=== PATIENT | male | born 1970 | race Caucasian/White ===

== ENCOUNTER 2021-04-20 07:21 | Emergency (ER) | payer OTHER ==
[2021-04-20 08:00] LABS: HEMOGLOBIN 16.7 gm/dl (14.0-17.5); RED BLOOD COUNT 5.4 M/UL (4.20-5.50); WHITE BLOOD COUNT 9.4 K/UL (4.5-11.0)
[2021-04-20 08:26] LABS: BUN/CREATININE RATIO 12 (0-10)
[2021-04-20] MEDS ORDERED: PREDNISONE20 MG PO (10:02)
== END 2021-04-20 10:17 | disposition home or self-care (01) ==
LOC: ER1 07:21
PROVIDERS: Family Medicine
DX: J44.1 Chronic obstructive pulmonary disease with (acute) exacerbation (principal); F41.9 Anxiety disorder, unspecified; Z99.81 Dependence on supplemental oxygen; Z87.891 Personal history of nicotine dependence; Z20.822 Contact with and (suspected) exposure to COVID-19
CPT/HCPCS: 36600; 71045; 80053; 82550; 82553; 82803; 83605; 83690; 83735; 83874; 83880; 84484; 85025; 93005; 94640; 94664; 96374; 99285; J2930; U0002

== ENCOUNTER 2021-11-11 13:58 | Emergency (ER) | payer OTHER ==
[~2021-11-11 13:58] MED LIST: PREDNISONE20 MG PO
[2021-11-11 14:50] LABS: HEMOGLOBIN 14.4 gm/dl (14.0-17.5); RED BLOOD COUNT 4.77 M/UL (4.20-5.50); WHITE BLOOD COUNT 9.3 K/UL (4.5-11.0)
[2021-11-11 15:18] LABS: BUN/CREATININE RATIO 13 (0-10)
[2021-11-11] MEDS ORDERED: PREDNISONE 20 M20 MG PO (16:53)
== END 2021-11-11 16:55 | disposition home or self-care (01) ==
LOC: ER1 13:58
PROVIDERS: Emergency Medicine
DX: J44.1 Chronic obstructive pulmonary disease with (acute) exacerbation (principal); I51.9 Heart disease, unspecified; I25.2 Old myocardial infarction
CPT/HCPCS: 71045; 80053; 82550; 82553; 83605; 84484; 85025; 87040; 87086; 93005; 94664; 96374; 99284; J2930

== ENCOUNTER → 2021-11-20 | Outpatient (CLI) | payer OTHER ==
[~2021-11-20] MED LIST changes: +PREDNISONE 20 M20 MG PO
[2021-11-20 16:35] LABS: HEMOGLOBIN 14.9 gm/dl (14.0-17.5); RED BLOOD COUNT 4.89 M/UL (4.20-5.50); WHITE BLOOD COUNT 12.7 K/UL (4.5-11.0)
== END ==
LOC: LAB 16:04
PROVIDERS: Internal Medicine Pulmonary Disease
DX: J45.50 Severe persistent asthma, uncomplicated (principal); R09.02 Hypoxemia
CPT/HCPCS: 36415; 36600; 82803; 85025

== ENCOUNTER → 2021-11-20 | Outpatient (CLI) | payer OTHER | LOC: HEART 5 14:41 | DX: J44.9 Chronic obstructive pulmonary disease, unspecified (principal) | CPT/HCPCS: 94060; 94729 ==